=== PATIENT | female | born 1945 | race Caucasian/White ===

== ENCOUNTER 2018-06-01 09:21 | Emergency (ER) | payer OTHER, BC ==
[2018-06-01 09:44] VITALS: BP 146/92
--- NOTE | 2018-06-01 09:49 | EDPHY ---
H & P Stated Complaint: rash under left breast Time Seen by Provider: 06/01/18 09:39 HPI/ROS: CHIEF COMPLAINT: Rash HISTORY OF PRESENT ILLNESS: Patient is a 73-year-old female who recently finished treatment for shingles to her lower abdomen and left flank. She is feeling significantly better with this but today noticed a rash below her left breast. It is slightly pruritic. It is not painful. She did take steroids during the course of her shingles treatment. Severity: Moderate Modifying factors: None REVIEW OF SYSTEMS: Constitutional: denies: chills, fever, recent illness, recent injury EENTM: denies: blurred vision, double vision, nose congestion Respiratory: denies: cough, shortness of breath Cardiac: denies: chest pain, irregular heart rate, lightheadedness, palpitations Gastrointestinal/Abdominal: denies: abdominal pain, diarrhea, nausea, vomiting, blood streaked stools Genitourinary: denies: dysuria, frequency, hematuria, pain Musculoskeletal: denies: joint pain, muscle pain Skin: See above Neurological: denies: headache, numbness, paresthesia, tingling, dizziness, weakness Hematologic/Lymphatic: denies: blood clots, easy bleeding, easy bruising Immunologic/allergic: denies: HIV/AIDS, transplant 10 systems reviewed and negative except as noted EXAM: GENERAL: Well-appearing, well-nourished and in no acute distress. HEAD: Atraumatic, normocephalic. EYES: Pupils equal round and reactive to light, extraocular movements intact, sclera anicteric, conjunctiva are normal. ENT: TMs normal, nares patent, oropharynx clear without exudates. Moist mucous membranes. NECK: Normal range of motion, supple without lymphadenopathy or JVD. LUNGS: Breath sounds clear to auscultation bilaterally and equal. No wheezes rales or rhonchi. HEART: Regular rate and rhythm without murmurs, rubs or gallops. ABDOMEN: Soft, nontender, normoactive bowel sounds. No guarding, no rebound. No masses appreciated. BACK: No CVA tenderness, no spinal tenderness, step-offs or deformities EXTREMITIES: Normal range of motion, no pitting or edema. No clubbing or cyanosis. NEUROLOGICAL: Cranial nerves II through XII grossly intact. Normal speech, normal gait. 5/5 strength, normal movement in all extremities, normal sensation , normal reflexes PSYCH: Normal mood, normal affect. SKIN: Slight fungal appearing rash with satellite lesions below left breast, moist, no fluctuance Source: Patient Exam Limitations: No limitations - Personal History Current Tetanus Diphtheria and Acellular Pertussis (TDAP): Yes - Medical/Surgical History Hx Asthma: Yes Hx Chronic Respiratory Disease: Yes Hx Diabetes: No Hx Cardiac Disease: Yes Hx Renal Disease: No Hx Cirrhosis: No Hx Alcoholism: No Hx HIV/AIDS: No Hx Splenectomy or Spleen Trauma: No Other PMH: [place] 2 years ago, stents placed, bronchitis, pneumonia,hypertension, ulcerative colitis,asthma, COPD - Family History Significant Family History: No pertinent family hx - Social History Smoking Status: Former smoker Alcohol Use: Sober Drug Use: None Constitutional: Initial Vital Signs Temperature (C) 36.5 C 06/01/18 09:38 Heart Rate 74 06/01/18 09:38 Respiratory Rate 18 06/01/18 09:38 Blood Pressure 146/92 H 06/01/18 09:38 O2 Sat (%) 92 06/01/18 09:38 O2 Delivery Mode Room Air Allergies/Adverse Reactions: mesalamine [From Asacol] Allergy (Verified 06/01/18 09:33) Home Medications: Medication Instructions Recorded Atorvastatin Calcium 04/16/15 Metoprolol Tartrate 04/16/15 Proair Hfa Icu (RX) 04/16/15 Advair Hfa 115-21 Mcg Inhaler 06/01/18 Aspirin EC 81 mg (*) 06/01/18 Fluconazole [Diflucan (*)] 150 mg PO ONCE #1 tab 06/01/18 Ketoconazole [Xolegel] 45 gm TP BID #1 gel..gram. 06/01/18 Losartan-Hctz 100-12.5 mg Tab 06/01/18 MYCOPHENOLATE MOFETIL 250 mg 06/01/18 Pro Air 06/01/18 Vitamin D2 06/01/18 Medical Decision Making ED Course/Re-evaluation: Patient has tinea corporis on exam. I will start her on ketoconazole cream and give her a single dose of Diflucan. She is happy with this and relieved. She declines further workup or testing at this time. Differential Diagnosis: Partial list of the Differential diagnosis considered include but were not limited to; tenia corporis, shingles, and although unlikely based on the history and physical exam, I also considered cellulitis, abscess, allergic reaction. I discussed these differential diagnoses and the plan with the patient as well as the usual and expected course. The patient understands that the diagnosis is provisional and that in medicine we are not always correct and that further workup is often warranted. Usual and customary warnings were given. All of the patient's questions were answered. The patient was instructed to return to the emergency department should the symptoms at all worsen or return, otherwise to followup with the physician as we discussed. Departure - Departure Disposition: Home, Routine, Self-Care Clinical Impression: Tinea corporis Condition: Fair Instructions: Ketoconazole (By mouth), Fluconazole (By mouth), Ketoconazole ( On the skin), Skin Yeast Infection (ED) Referrals: Jere Keenan MD [Medical Doctor] - 2-3 days, if not improved Prescriptions: Fluconazole [Diflucan (*)] 150 mg PO ONCE #1 tab Ketoconazole [Xolegel] 45 gm TP BID #1 gel..gram.
== END 2018-06-01 09:59 | disposition home or self-care (01) ==
LOC: CED 09:21
DX: B35.4 Tinea corporis (principal)